=== PATIENT | male | born 1950 | race Two or more races ===

== ENCOUNTER → 2017-08-01 | Outpatient (CLI) | payer OTHER, BC | END | disposition home or self-care (01) | LOC: RAD 11:22 | DX: M54.5 Low back pain (principal) ==

== ENCOUNTER 2017-08-05 13:13 | Outpatient (CLI) | payer OTHER, BC | END 2017-08-05 15:13 | disposition home or self-care (01) | LOC: MRI 13:13 | DX: M54.5 Low back pain (principal); S32.010S Wedge compression fracture of first lumbar vertebra, sequela | CPT/HCPCS: 72158; A9579 ==

== ENCOUNTER 2018-10-01 08:20 | Outpatient (CLI) | payer OTHER | END 2018-10-01 08:51 | disposition home or self-care (01) | LOC: RAD 08:20 | DX: I11.9 Hypertensive heart disease without heart failure (principal); K76.0 Fatty (change of) liver, not elsewhere classified; R16.0 Hepatomegaly, not elsewhere classified ==

== ENCOUNTER → 2018-10-10 | Outpatient (CLI) | payer OTHER | END | disposition home or self-care (01) | LOC: NUCLEAR 09:37 | DX: I87.2 Venous insufficiency (chronic) (peripheral) (principal); M85.88 Other specified disorders of bone density and structure, other site; M81.0 Age-related osteoporosis without current pathological fracture ==

== ENCOUNTER 2018-11-20 14:12 | Outpatient (CLI) | payer OTHER | END 2018-11-20 14:16 | disposition home or self-care (01) | LOC: TOM 14:12 | DX: J84.112 Idiopathic pulmonary fibrosis (principal); I10 Essential (primary) hypertension; H26.8 Other specified cataract ==

== ENCOUNTER 2020-02-22 13:33 | Outpatient (CLI) | payer OTHER | END 2020-02-22 14:07 | disposition home or self-care (01) | LOC: RAD 13:33 | PROVIDERS: ATTEND General Practice | DX: J98.4 Other disorders of lung (principal) ==

== ENCOUNTER 2020-09-30 08:36 | Outpatient (CLI) | payer OTHER | END 2020-09-30 08:43 | disposition home or self-care (01) | LOC: RAD 08:36 | PROVIDERS: ATTEND General Practice | DX: I11.9 Hypertensive heart disease without heart failure (principal); J98.6 Disorders of diaphragm ==

== ENCOUNTER 2020-10-17 09:16 | Outpatient (CLI) | payer OTHER | END 2020-10-17 09:26 | disposition home or self-care (01) | LOC: SONOGRAMA 09:16 | PROVIDERS: ATTEND General Practice | DX: N28.89 Other specified disorders of kidney and ureter (principal); R94.5 Abnormal results of liver function studies ==